=== PATIENT | female | born 1965 | race Caucasian/White ===

== ENCOUNTER → 2018-04-02 14:54 | Outpatient (CLI) | payer OTHER, SELFPAY ==
[2018-04-02 16:11] LABS: Hematocrit 43.8 % (36-46); Hemoglobin 15.1 g/dL (12.0-16.0); Mean Corpuscular Volume 98.2 fL (80-100); Red Blood Cell Count 4.46 X10^6/uL (4.0-5.2); White Blood Cell Count 6.8 X10^3/uL (4.5-11.0)
[2018-04-02 16:12] LABS: Add Manual Diff / Slide Review NO; Basophils Percent Auto 0.2 % (0-2); Eosinophils Percent Auto 1.2 % (2-4); Lymphocytes Percent Auto 25.3 % (25-40); Mean Corpuscular HGB Conc 34.6 % (30-36); Mean Corpuscular Hemoglobin 33.9 PG (26-34); Monocytes Percent Auto 6.5 % (3-14); Neutrophils Absolute Auto 5 /uL (3000-5900); Neutrophils Percent Auto 66.8 % (50-75); Platelet Count 238 X10^3/uL (150-400); Red Cell Distribution Width 12.5 % (11.6-14.8)
[2018-04-02 16:32] LABS: Alanine Aminotransferase 62 IU/L (9-52); Albumin 4.4 g/dL (3.5-5.0); Albumin Globulin Ratio 1.6 (1.0-2.8); Alkaline Phosphatase 57 U/L (38-126); Aspartate Aminotransferase 41 IU/L (14-36); BUN Creatinine Ratio 14.3 (6-22); Bilirubin Total 0.9 mg/dL (0.2-1.3); Blood Urea Nitrogen 10 mg/dL (7-17); Calcium 10.1 mg/dL (8.4-10.2); Carbon Dioxide 28 mmol/L (22-32); Chloride 104 mmol/L (98-107); Estimated Glomerular Filt Rate > 60.0 mL/min (>60); Globulin 2.8 g/dL (1.7-4.1); Glucose 85 mg/dL (70-100); HEMOLYSIS < 15 (0-50); Potassium 4.2 mmol/L (3.4-5.1); Sodium 141 mmol/L (137-145); Total Protein 7.2 g/dL (6.3-8.2)
== END ==
PROVIDERS: Family Provider Specialist; PCP Physician Assistant Medical; Visit Provider Specialist
DX: K62.89 Other specified diseases of anus and rectum (principal); R11.2 Nausea with vomiting, unspecified; Z85.42 Personal history of malignant neoplasm of other parts of uterus; R10.9 Unspecified abdominal pain
CPT/HCPCS: 36415; 80053; 85025

== ENCOUNTER → 2018-04-02 15:29 | Outpatient (CLI) | payer OTHER, SELFPAY ==
--- NOTE | 2018-04-02 15:31 | DI.CT.S_ITS ---
PROCEDURE: CT ABDOMEN PELVIS W CON INDICATIONS: lower abdominal pain/rectal pain n/v. hx endometrial CA TECHNIQUE: After the administration of oral and intravenous contrast, 5 mm thick sections acquired from the diaphragms to the symphysis. 5 mm thick coronal and sagittal reformats were performed. For radiation dose reduction, the following was used: automated exposure control, adjustment of mA and/or kV according to patient size. COMPARISON: Merged With [facility], , PELVIC COMPLETE, 10/21/2012, 14:37. FINDINGS: Image quality: Excellent. ABDOMEN: Lung bases: Lung bases are clear. Heart size is normal. A small hiatal hernia is incidentally noted. Solid organs: Liver is normal in size and enhancement. Low-density lesions can be seen within the liver, the largest seen within the central liver superiorly measuring 13 mm. Gallbladder wall does not appear thickened. Biliary system is non-dilated. Pancreas enhances normally. Spleen is normal in size and enhancement. No adrenal nodules. Kidneys are normal in size and enhancement, without hydronephrosis. Peritoneum and bowel: In this patient with this given history, scrutiny is given to the distal colon. There is relatively prominent sigmoid diverticulosis, yet without stacy findings of active diverticulitis. The rectum itself demonstrates an unremarkable appearance. No dilated loops of small bowel are seen. No free air or significant free routine seen. Incidental note is made of a normal-appearing appendix. Nodes and vessels: No retroperitoneal or mesenteric adenopathy. Aorta and inferior vena cava are normal in caliber. Miscellaneous: No ventral hernias. PELVIS: Genitourinary: Bladder wall thickness is normal. This patient is status post hysterectomy. No adnexal masses are seen. Miscellaneous: No inguinal hernias or adenopathy. Bones: No suspicious bony lesions. No vertebral body compression fractures. IMPRESSION: Relatively prominent sigmoid diverticulosis, yet without findings of active diverticulitis. No rectal abnormality is detected. Status post hysterectomy. No stacy findings of metastatic disease are detected in this patient with a given history of endometrial cancer. Incidental note is made of: Small hiatal hernia Liver cysts Dictated by: Kris Cortez M.D. on 04/02/2018 at 16:20 Approved by: Kris Cortez M.D. on 04/02/2018 at 16:23
== END ==
PROVIDERS: Family Provider Specialist; PCP Physician Assistant Medical; Visit Provider Specialist
DX: K57.30 Diverticulosis of large intestine without perforation or abscess without bleeding (principal); K44.9 Diaphragmatic hernia without obstruction or gangrene; K76.9 Liver disease, unspecified
CPT/HCPCS: 36415; 74177; 80053; 85025; Q9967

== ENCOUNTER 2018-04-04 14:12 | Day surgery (SDC) | payer OTHER, SELFPAY ==
--- NOTE | 2018-04-04 | PATH_ITS ---
[facility] Accession Number: [id number] . 01 Material submitted: . PART A: POLYP AT 15CM PART B: RECTAL BIOPSIES . 02 Diagnosis: A. Colon, Polyp at 15 cm, Biopsy: Tubular adenoma. . B. Rectum, Biopsies: Rectal mucosa with patchy extravasated red blood cells. Negative for chronic and microscopic colitis. Negative for dysplasia and malignancy. MRV/04/08/2018 . 02 Comment: The presence of fresh hemorrhage is most consistent with procedure-related changes. Clinical correlation recommended. . 02 Electronically signed: . Francine Ferrari MD, Pathologist NPI- [id number] . 01 Gross description: . Part A: POLYP AT 15CM: Received in formalin are 2 fragment(s) of welsh, soft tissue measuring 0.5 x 0.3 x 0.3 cm to 0.4 x 0.3 x 0.1 cm submitted entirely in 1 cassette(s) Part B: RECTAL BIOPSIES: Received in formalin are multiple fragment(s) of welsh, soft tissue measuring 1.4 x 0.4 x 0.2 cm in aggregate submitted entirely in 1 cassette(s) /CKI /CKI . 02 Pathologist provided ICD-10: D12.6 . 02 CPT . 499880, [id number] Performed at: 01 [facility] [address], [place], [place] [id number] MD Jf Flores MD Phone: [phone] Performed at: 02 [facility] [place] [address] [place], [place] [id number] MD Gonzalo Quintana MD Phone: [phone]
[2018-04-04 14:48] VITALS: BP 108/78; PULSE 91; RESP 16; TEMP 36.2; O2SAT 97; BMI 42.3
[2018-04-04] MEDS: LACTATED RINGERS 1,000 ML 42 ML IV (15:02)
--- NOTE | 2018-04-04 16:14 | PM.PREOP ---
Pre-operative Note Interval Note Pre-op Check: Yes History & Physical Reviewed by Physician and Yes Exam Performed Changes: No H&P completed within 30 days and has changed as indicated here:: Patient is incredibly anxious. Because of this we will have an anesthesiologist available to provide deep sedation.
[2018-04-04 16:54] VITALS: BP 99/62; PULSE 78; RESP 21; TEMP 36; O2SAT 95
--- NOTE | 2018-04-04 16:56 | P.OP.ENDO_ITS ---
Operative Date/Time/Diagnoses Date of procedure: 04/04/18 Time of procedure: 16:51 Pre-op diagnosis: Rectal bleeding per. Pelvic/rectal and lower abdominal pain. Post-op diagnosis: same (Polyp at 15 cm. Diverticulosis principally of the left colon. No evidence of diverticulitis) Procedure & Clinicians Study performed: Colonoscopy with hot snare polypectomy Same procedure as scheduled: Yes Indications: See preop diagnosis. Patient is due for screening. Last exam 6 years ago with a history of polyps. Surgeon: David Augustin Procedure Notes SCOAP/Timeout: Performed Procedure in detail: The patient was placed in the left lateral decubitus position and underwent IV sedation directed by the surgeon consisting of fentanyl and Versed. Digital exam was unremarkable. The scope was inserted and advanced through the rectum into the sigmoid, descending, transverse, and ascending colon.[The patient was noted to have fairly extensive sigmoid and descending colon diverticulosis]. The cecum was reached identified by the ileocecal valve and the appendiceal opening. The ileocecal valve was not able to be cannulated. The scope was gradually brought out. A Polyp were found at [15 cm from the anal verge. This was snared and completely removed with a hot snare.]. The scope ultimately was retroflexed in the rectum. The appearance was normal because of the patient's symptoms random biopsies were taken of the rectum. There was no visible evidence of disease.. The scope was removed and the patient tolerated the procedure well Scope withdrawal time: 11 min Sedation minutes: 0 Findings: diverticulosis (Left colon) and polyp (15 cm from the anal verge) Specimen(s): other (Polyp and random rectal biopsies) Complications: none Recommendations: Colonscopy in 5 years Plan for aftercare: As needed Follow up: as needed Disposition: PACU
[2018-04-04 16:59] VITALS: BP 98/64; PULSE 78; RESP 20; O2SAT 96
[2018-04-04 17:04] VITALS: BP 105/65; PULSE 78; RESP 20; O2SAT 97
[2018-04-04 17:09] VITALS: BP 107/78; PULSE 81; RESP 18; TEMP 36.4; O2SAT 97
[2018-04-04 17:17] VITALS: BP 107/65; PULSE 73; RESP 16; TEMP 36; O2SAT 95
== END 2018-04-04 17:32 | disposition home or self-care (01) ==
PROVIDERS: Family Provider Specialist; PCP Physician Assistant Medical; Visit Provider Specialist
PROC: 0DJD8ZZ Inspection of Lower Intestinal Tract, Via Natural or Artificial Opening Endoscopic (ICD-10-PCS; CPT 45378; principal; 2018-04-04 15:30)
DX: D12.6 Benign neoplasm of colon, unspecified (principal); K57.30 Diverticulosis of large intestine without perforation or abscess without bleeding; D12.5 Benign neoplasm of sigmoid colon; Z86.010 Personal history of colon polyps
CPT/HCPCS: 45385; J2250; J2704; J3010